=== PATIENT | female | born 1965 | race Native Hawaiian/Other Pacific Islander ===

== ENCOUNTER 2022-07-27 21:03 | Emergency (ER) | payer OTHER ==
[~2022-07-27] VITALS: Ht 170.2 cm; Wt 121.1 kg
[2022-07-27 21:03] VITALS: BP 148/75; TEMP 97.2
[2022-07-27 22:08] LABS: PLATELET COUNT 302 K/uL (152-353)
[2022-07-27 22:17] LABS: POTASSIUM 5.2 mmol/L (3.6-5.2)
[2022-07-28] MEDS ORDERED: ALBUTEROL0.63 MG/3 INH (10:16)
[2022-07-28] MEDS ORDERED: ALPR0.5T24 PO (10:16)
[2022-07-28] MEDS ORDERED: BREO ELLIPTA 101 INH INH (10:17)
[2022-07-28] MEDS ORDERED: BUSPIRONE10 MG PO (10:17)
[2022-07-28] MEDS ORDERED: DIVALPROEX250 MG PO (10:18)
[2022-07-28] MEDS ORDERED: DICYCLOMINE HYD20 MG PO (10:18)
[2022-07-28] MEDS ORDERED: DONEPEZIL HYDRO10 M1 PO (10:19)
[2022-07-28] MEDS ORDERED: DIVALPROEX500 MG PO (10:19)
[2022-07-28] MEDS ORDERED: DULO30CA PO (10:20)
[2022-07-28] MEDS ORDERED: VITAMIN D50000 UNIT PO (10:20)
[2022-07-28] MEDS ORDERED: EZET10TA13 PO (10:21)
[2022-07-28] MEDS ORDERED: ESOMEPRAZOLE MA40 M1 PO (10:21)
[2022-07-28] MEDS ORDERED: FENOFIBRATE160 MG PO (10:22)
[2022-07-28] MEDS ORDERED: KP FOLIC ACID1 MG PO (10:23)
[2022-07-28] MEDS ORDERED: ALLERGY RE50 MCG/ACT NAS (10:23)
[2022-07-28] MEDS ORDERED: NEURONTIN800 MG PO (10:24)
[2022-07-28] MEDS ORDERED: JARDIANCE25 MG PO (10:24)
[2022-07-28] MEDS ORDERED: MELATONIN5 M2 PO (10:25)
[2022-07-28] MEDS ORDERED: LATUDA60 MG PO (10:25)
[2022-07-28] MEDS ORDERED: EUTHYROX25 MCG PO (10:25)
[2022-07-28] MEDS ORDERED: MEMA5TAB PO (10:26)
[2022-07-28] MEDS ORDERED: METFTAB PO (10:26)
[2022-07-28] MEDS ORDERED: MYRBETRIQ50 MG PO (10:27)
[2022-07-28] MEDS ORDERED: NICODERM C21 MG/241 TD (10:28)
[2022-07-28] MEDS ORDERED: OXYC5TAB53 PO (10:29)
[2022-07-28] MEDS ORDERED: NYST100010 TOP (10:29)
[2022-07-28] MEDS ORDERED: PROMETHAZINE HY25 MG PO (10:30)
[2022-07-28] MEDS ORDERED: SENNOSIDES8.6 MG PO (10:31)
[2022-07-28] MEDS ORDERED: MAXALT10 MG PO (10:31)
[2022-07-28] MEDS ORDERED: TRAZ100T PO (10:32)
[2022-07-28] MEDS ORDERED: TIZA4TAB5 PO (10:32)
== END 2022-07-27 22:10 | disposition still patient (30) ==
LOC: ED 21:03
PROVIDERS: Family Medicine
DX: F03.911 Unspecified dementia, unspecified severity, with agitation (principal); E66.8 Other obesity; Z11.52 Encounter for screening for COVID-19; Z04.6 Encounter for general psychiatric examination, requested by authority
CPT/HCPCS: 36415; 80053; 81000; 85027; 87635; 93005; 99283; U0003